=== PATIENT | male | born 1955 | race Caucasian/White ===

== ENCOUNTER 2023-02-08 08:37 | Inpatient (IN) | payer MEDICARE, MEDICAID ==
[2023-02-08] VITALS (46 sets, daily range): BP systolic 43–128; BP diastolic 17–109; PULSE 45–116; RESP 14–34; TEMP 97.2–98.5; O2SAT 90
[~2023-02-08] VITALS: Ht 160 cm; Wt 90.8 kg
[~2023-02-08 08:37] MED LIST: FLUO10CA28 PO; GABA-532 PO; GLIP5TAB12 PO; INSU3INS6 SUBCUT; LOVA40TA73 PO; METF-416 PO; RISA150S2; TAMS-11 MT; farxiga PO
[2023-02-08] MEDS ORDERED: NOREPINEPHRINE 8MG/250ML PMX 250 ML IV ONE ×2 (09:00→11:15)
[2023-02-08] MEDS ORDERED: VANCOMYCIN 1G PREMIX 200 ML IV SCH (09:00)
[2023-02-08] MEDS ORDERED: SODIUM CHLORIDE 0.9% 1000ML BAG (SEPSIS BOLUS) IV ONE (09:00)
[2023-02-08] MEDS ORDERED: PIPERACILLIN/TAZ 3.375G PREMIX 50 ML IV ONE (09:00)
[2023-02-08 09:28] LABS: CHLORIDE 112 mEq/L (98-107); INDEX HEMOLYSI 4 (1-3); INDEX ICTERIC 1 (1-4); INDEX LIPEMIC 1 (1-3); SODIUM 142 mEq/L (136-145)
[2023-02-08 09:40] LABS: ALANINE AMINOTRANSFERASE 61 IU/L (13-61); ALBUMIN 1.6 g/dL (3.4-5.0); ASPARTATE AMINOTRANSFERASE 67 IU/L (15-37); BILIRUBIN TOTAL 1.4 mg/dL (0.1-1.0); CALCIUM 7.4 mg/dL (8.5-10.1); CARBON DIOXIDE 21 mEq/L (21-32); CREATININE 4.1 mg/dL (0.6-1.3); GLUCOSE 55 mg/dL (70-105); LACTATE DEHYDROGENASE 336 IU/L (100-240); NT PRO B-TYPE NATRIURETIC PEP 4789 pg/mL (5-125); PROTEIN TOTAL 5.3 g/dL (6.0-8.3); TROPONIN I HIGH SENSITIVITY 40 ng/L (<78)
[2023-02-08] MEDS ORDERED: PROPOFOL 10MG/ML 100ML 100 ML IV SCH (09:45)
[2023-02-08 09:47] LABS: POTASSIUM 5.7 mEq/L (3.5-5.1)
[2023-02-08 09:48] LABS: UREA NITROGEN BLOOD 121 mg/dL (7-21)
[2023-02-08] MEDS ORDERED: INSULIN REGULAR (HUMULIN R) 300UNITS/3ML VIAL IV STA (09:51)
[2023-02-08 10:00] LABS: BG BASE EXCESS -12.4 mmol/L (-2.0-2.0); BG CARBOXYHEMOGLOBIN 0.2 % (0.5-1.5); BG DEOXYHEMOGLOBIN 3.3 % (0.0-5.0); BG FRACTION INSPIRED OXYGEN 100; BG HCO3 ACT 15.1 mmol/L (22.0-26.0); BG METHEMOGLOBIN 0.2 % (0.0-1.5); BG OXYGEN SATURATION 96.7 % (92.0-98.5); BG OXYHEMOGLOBIN 96.3 % (94.0-97.0); BG PCO2 40.9 mmHg (35.0-45.0); BG PH 7.186 (7.350-7.450); BG PO2 113.3 mmHg (75.0-100.0); BG SAMPLE SITE RIGHT RADIAL; BG TOTAL HEMOGLOBIN 9.9 g/dL (12.0-18.0); BG VENT MODE VENT - AC
[2023-02-08] MEDS ORDERED: PHENYLEPHRINE 50 MG in DEXT 5% WATER 245 ML IV PRN (10:00)
[2023-02-08] MEDS ORDERED: DEXTROSE 50% WATER 50ML SYRINGE IV ONE ×3 (10:00→14:30)
[2023-02-08] MEDS ORDERED: SODIUM BICARBONATE 8.4% 1 MEQ/ML 50ML SYR IV ONE ×3 (10:00→16:05)
[2023-02-08] MEDS ORDERED: CALCIUM CHLORIDE 1GM/10ML SYR IV ONE (10:00)
[2023-02-08 10:13] LABS: HEMATOCRIT. 24.8 % (42.0-52.0); HEMOGLOBIN. 7.5 g/dL (14.0-18.0); MEAN CORPUSCULAR HEMOGLOBIN 27.9 pg (28.0-32.0); MEAN CORPUSCULAR HGB CONC 30.5 g/dL (31.0-37.0); MEAN CORPUSCULAR VOLUME 91.7 fL (80.0-94.0); PLATELET 157 x1000/uL (130-400); RED CELL DISTRIBUTION WIDTH 20.3 % (11.6-14.6)
[2023-02-08 10:18] LABS: DIFFERENTIAL COMMENT 1
[2023-02-08 10:19] LABS: WHITE BLOOD COUNT 1.9 x1000/uL (4.5-11.0)
[2023-02-08 10:31] LABS: INR 1.8; PROTHROMBIN TIME 18.2 sec (9.6-11.0)
[2023-02-08 11:00] LABS: ANISOCYTOSIS 2+; PLATELET ESTIMATE NORMAL
[2023-02-08 11:32] LABS: CLARITY URINE TURBID (CLEAR); COLOR URINE DARK YELLOW (YELLOW); GLUCOSE URINE NEGATIVE (NEGATIVE); KETONES URINE NEGATIVE (NEGATIVE); LEUKOCYTE ESTERASE URINE 3+ (NEGATIVE); NITRITE URINE NEGATIVE (NEGATIVE); OCCULT BLOOD URINE 3+ (NEGATIVE); PROTEIN URINE 1+ (NEGATIVE); SPECIFIC GRAVITY URINE 1.014 (1.005-1.030); UROBILINOGEN URINE 0.2 E.U./dL (0.2-1.0)
[2023-02-08 11:43] LABS: TROPONIN I HIGH SENSITIVITY 63 ng/L (<78)
[2023-02-08 12:06] LABS: SQUAMOUS EPITHELIAL CELL URINE NONE SEEN /lpf (RARE/1+)
[2023-02-08 12:07] LABS: WBC URINE TNTC /hpf (0-2)
[2023-02-08] MEDS ORDERED: LIDOCAINE HCL 1% 10 MG/ML 10ML VIAL ONE ×2 (12:09→12:50)
[2023-02-08 12:13] LABS: RBC URINE 50-100 /hpf (0-2)
[2023-02-08 12:14] LABS: BACTERIA URINE 1+; YEAST URINE 4+
[2023-02-08] MEDS ORDERED: ONDANSETRON HCL 4MG/2ML INJ IV ONE (12:30)
[2023-02-08] MEDS ORDERED: MORPHINE SULFATE 2 MG/ML CPJ (NOT FOR IM USE) IV ONE (12:30)
[2023-02-08] MEDS ORDERED: PHENYLEPHRINE 100 MG in DEXT 5% WATER 240 ML IV PRN (13:45)
[2023-02-08] MEDS ORDERED: VASOPRESSIN 20 UNIT in SODIUM CHLORIDE 0.9% 99 ML IV PRN ×2 (14:45→15:30)
[2023-02-08] MEDS ORDERED: NOREPINEPHRINE 8 MG in DEXT 5% WATER 242 ML IV PRN (14:45)
[2023-02-08] MEDS ORDERED: MIDAZOLAM 100MG/100ML PMX 100 ML IV PRN (14:45)
[2023-02-08] MEDS ORDERED: DEXT 5%/0.45% NACL 1000ML 1,000 ML IV SCH (14:45)
[2023-02-08] MEDS ORDERED: DEXTROSE 50% WATER 50ML SYRINGE IV NR (15:00)
[2023-02-08] MEDS ORDERED: ONDANSETRON HCL 4MG/2ML INJ IV PRN (15:00)
[2023-02-08] MEDS ORDERED: VANCOMYCIN 750MG PREMIX 150 ML IV NR (15:00)
[2023-02-08] MEDS ORDERED: IPRATROPIUM/ALBUTEROL 0.5-3(2.5)MG/3ML NEB HHN PRN (15:00)
[2023-02-08] MEDS ORDERED: MIDAZOLAM HCL 100 MG in SODIUM CHLORIDE 0.9% 100 ML IV PRN (15:00)
[2023-02-08] MEDS ORDERED: NOREPINEPHRINE 8MG/250ML PMX 250 ML IV PRN (15:00)
[2023-02-08] MEDS ORDERED: ACETAMINOPHEN 325MG TABLET PO PRN (15:00)
[2023-02-08] MEDS ORDERED: PANTOPRAZOLE SODIUM 40 MG/VIAL IV SCH (15:15)
[2023-02-08 15:30] LABS: PHOSPHORUS 6.3 mg/dL (2.5-4.9)
[2023-02-08] MEDS ORDERED: ALBUMIN HUMAN 25GM/100ML (25%) IV NR ×2 (15:30→16:00)
[2023-02-08] MEDS ORDERED: SODIUM BICARBONATE 8.4% 1 MEQ/ML 50ML SYR IV NR (15:30)
[2023-02-08] MEDS: VASOPRESSIN 20 UNIT in SODIUM CHLORIDE 0.9% 99 ML IV PRN (16:09)
[2023-02-08] MEDS ORDERED: MEROPENEM 1,000 MG in SODIUM CHLORIDE 0.9% 100 ML IV SCH (16:30)
[2023-02-08] MEDS: NOREPINEPHRINE 32 MG in DEXT 5% WATER 218 ML IV PRN ×2 (17:59→22:34)
[2023-02-08] MEDS: EPINEPHRINE 10 MG in SODIUM CHLORIDE 0.9% 240 ML IV PRN ×2 (18:00→22:34)
[2023-02-08] MEDS ORDERED: AZITHROMYCIN 500 MG in DEXT 5% WATER 250 ML IV SCH (18:00)
[2023-02-08] MEDS: PHENYLEPHRINE 100 MG in DEXT 5% WATER 240 ML IV PRN (19:19)
[2023-02-08] MEDS: MEROPENEM 500MG in NORMAL SALINE 50ML IV SCH (19:20)
[2023-02-08 20:23] LABS: HEMATOCRIT 27.4 % (42.0-52.0)
[2023-02-08 20:31] LABS: INDEX HEMOLYSI 1 (1-3)
[2023-02-08 20:39] LABS: AMMONIA 47 uMol/L (<32)
[2023-02-08] MEDS ORDERED: PIPERACILLIN/TAZ 3.375G PREMIX 50 ML IV NR (21:00)
[2023-02-08] MEDS ORDERED: PIPERACILLIN/TAZOBACTAM 3.375 G in DEXTROSE 5% WATER 50 ML IV SCH (21:00)
[2023-02-08] MEDS ORDERED: MICAFUNGIN 100 MG in SODIUM CHLORIDE 0.9% 100 ML IV SCH (22:00)
[2023-02-09] VITALS (60 sets, daily range): BP systolic 72–130; BP diastolic 21–94; PULSE 50–126; RESP 17–35; TEMP 96.7–98
[2023-02-09] MEDS: VASOPRESSIN 20 UNIT in SODIUM CHLORIDE 0.9% 99 ML IV PRN (00:16)
[2023-02-09] MEDS: PHENYLEPHRINE 100 MG in DEXT 5% WATER 240 ML IV PRN ×3 (00:17→11:02)
[2023-02-09 00:24] LABS: POTASSIUM 5.2 mEq/L (3.5-5.1)
[2023-02-09 00:26] LABS: CALCIUM 7.3 mg/dL (8.5-10.1)
[2023-02-09 00:30] LABS: CREATININE 4.2 mg/dL (0.6-1.3)
[2023-02-09] MEDS ORDERED: DEXTROSE 50% WATER 50ML SYRINGE IV ONE (00:30)
[2023-02-09] MEDS: IPRATROPIUM/ALBUTEROL 0.5-3(2.5)MG/3ML NEB HHN SCH ×3 (00:46→08:19)
[2023-02-09] MEDS: BLOOD SUGAR DIAGNOSTIC STRIP TEST SCH ×4 (00:47→12:00)
[2023-02-09] MEDS: EPINEPHRINE 10 MG in SODIUM CHLORIDE 0.9% 240 ML IV PRN ×4 (02:26→12:22)
[2023-02-09] MEDS ORDERED: SODIUM BICARBONATE 8.4% 1 MEQ/ML 50ML SYR IV NR ×3 (03:00→10:00)
[2023-02-09 04:27] LABS: CHLORIDE 109 mEq/L (98-107); INDEX HEMOLYSI 3 (1-3); INDEX ICTERIC 2 (1-4); INDEX LIPEMIC 1 (1-3); POTASSIUM 5.6 mEq/L (3.5-5.1); SODIUM 142 mEq/L (136-145)
[2023-02-09 04:29] LABS: CALCIUM 6.9 mg/dL (8.5-10.1)
[2023-02-09 04:48] LABS: ALANINE AMINOTRANSFERASE 483 IU/L (13-61); ALBUMIN 1.5 g/dL (3.4-5.0); BILIRUBIN TOTAL 2.5 mg/dL (0.1-1.0); CARBON DIOXIDE 10 mEq/L (21-32); CREATININE 4.3 mg/dL (0.6-1.3); GLUCOSE 66 mg/dL (70-105); PROTEIN TOTAL 4.8 g/dL (6.0-8.3)
[2023-02-09 04:53] LABS: ASPARTATE AMINOTRANSFERASE 2207 IU/L (15-37); LACTIC ACID 17.8 mmol/L (0.4-2.0); UREA NITROGEN BLOOD 122 mg/dL (7-21)
[2023-02-09] MEDS: MEROPENEM 500MG in NORMAL SALINE 50ML IV SCH (05:04)
[2023-02-09] MEDS: DEXTROSE 50% WATER 50ML SYRINGE IV PRN ×2 (05:13→07:57)
[2023-02-09] MEDS: NOREPINEPHRINE 32 MG in DEXT 5% WATER 218 ML IV PRN ×2 (05:19→11:03)
[2023-02-09] MEDS ORDERED: DEXTROSE 50% WATER 50ML SYRINGE IV NR (06:15)
[2023-02-09] MEDS ORDERED: SODIUM POLYSTYRENE SULFONATE 15 G/60 ML BOT PO NR (06:45)
[2023-02-09 08:27] LABS: BASOPHILS % 0.4 % (0.0-2.0); EOSINOPHILS % 7.1 % (0.0-5.0); LYMPHOCYTES % 17.6 % (20.0-50.0); MEAN CORPUSCULAR HEMOGLOBIN 27.6 pg (28.0-32.0); MEAN CORPUSCULAR HGB CONC 27.7 g/dL (31.0-37.0); MEAN CORPUSCULAR VOLUME 99.6 fL (80.0-94.0); MONOCYTES % 6.9 % (2.0-8.0); PLATELET 51 x1000/uL (130-400); RED BLOOD CELL COUNT 2.07 mill/uL (4.7-6.1); RED CELL DISTRIBUTION WIDTH 21.1 % (11.6-14.6)
[2023-02-09 08:29] LABS: DIFFERENTIAL COMMENT 1; HEMATOCRIT. 20.6 % (42.0-52.0); HEMOGLOBIN. 5.7 g/dL (14.0-18.0)
[2023-02-09 08:30] LABS: INDEX HEMOLYSI 4 (1-3); INDEX ICTERIC 2 (1-4); INDEX LIPEMIC 1 (1-3)
[2023-02-09 08:34] LABS: IRON 45 ug/dL (50-175); TOTAL IRON BINDING CAPACITY 99 ug/dL (250-450)
[2023-02-09] MEDS ORDERED: DEXTROSE 10% WATER 500 ML IV ONE (09:00)
[2023-02-09] MEDS ORDERED: PIPERACILLIN/TAZOBACTAM 3.375 G in DEXTROSE 5% WATER 50 ML IV SCH (09:00)
[2023-02-09 09:27] LABS: BG BASE EXCESS -26.9 mmol/L (-2.0-2.0); BG CARBOXYHEMOGLOBIN 0.6 % (0.5-1.5); BG DEOXYHEMOGLOBIN 6.2 % (0.0-5.0); BG FRACTION INSPIRED OXYGEN 100; BG HCO3 ACT 5.4 mmol/L (22.0-26.0); BG METHEMOGLOBIN 0.6 % (0.0-1.5); BG OXYGEN SATURATION 93.7 % (92.0-98.5); BG OXYHEMOGLOBIN 92.6 % (94.0-97.0); BG PCO2 32.4 mmHg (35.0-45.0); BG PH 6.836 (7.350-7.450); BG PO2 92.2 mmHg (75.0-100.0); BG SAMPLE SITE LEFT BRACHIAL; BG VENT MODE VENT - AC
[2023-02-09] MEDS ORDERED: SODIUM BICARBONATE 100 MEQ in DEXTROSE 5% WATER 1,000 ML IV SCH (11:00)
[2023-02-09 11:06] LABS: PROTHROMBIN TIME 42.4 sec (9.6-11.0)
[2023-02-09 11:20] LABS: INR 4.3; PARTIAL THROMBOPLASTIN TIME 139.5 sec (23.4-31.0)
[2023-02-09] MEDS ORDERED: OCTREOTIDE 1,000 MCG in SODIUM CHLORIDE 0.9% 100 ML IV SCH (11:30)
[2023-02-09] MEDS ORDERED: OCTREOTIDE ACETATE 50 MCG/ML 1ML IV NR (12:00)
[2023-02-09] MEDS ORDERED: HYDROCORTISONE SOD SUCCINATE 100 MG/2 ML VIAL IV SCH (14:00)
[2023-02-09] MEDS ORDERED: LACTULOSE 20G/30ML UDC PO SCH (14:00)
[2023-02-09] MEDS ORDERED: DEXT 10% WATER 1,000 ML IV SCH (14:00)
== END 2023-02-09 13:06 | DRG 871 ==
LOC: ER 09:00 → MICUSO 12:25
PROVIDERS: ADMIT Internal Medicine; ATTEND Internal Medicine
PROC: 02HV33Z Insertion of Infusion Device into Superior Vena Cava, Percutaneous Approach (ICD-10-PCS; 2023-02-08)
PROC: B548ZZA Ultrasonography of Superior Vena Cava, Guidance (ICD-10-PCS; 2023-02-08)
PROC: 5A1935Z Respiratory Ventilation, Less than 24 Consecutive Hours (ICD-10-PCS; 2023-02-08)
PROC: 0BH17EZ Insertion of Endotracheal Airway into Trachea, Via Natural or Artificial Opening (ICD-10-PCS; 2023-02-08)
PROC: 5A12012 Performance of Cardiac Output, Single, Manual (ICD-10-PCS; principal; 2023-02-09)
PROC: 30233N1 Transfusion of Nonautologous Red Blood Cells into Peripheral Vein, Percutaneous Approach (ICD-10-PCS; 2023-02-09)
DX: A41.50 Gram-negative sepsis, unspecified (principal); G92.8 Other toxic encephalopathy; R65.21 Severe sepsis with septic shock; J96.21 Acute and chronic respiratory failure with hypoxia; J96.22 Acute and chronic respiratory failure with hypercapnia; E46 Unspecified protein-calorie malnutrition; D68.9 Coagulation defect, unspecified; E87.20 Acidosis, unspecified; N17.9 Acute kidney failure, unspecified; N39.0 Urinary tract infection, site not specified; I46.9 Cardiac arrest, cause unspecified; Z20.822 Contact with and (suspected) exposure to COVID-19; J44.9 Chronic obstructive pulmonary disease, unspecified; D64.89 Other specified anemias; D69.6 Thrombocytopenia, unspecified; E11.649 Type 2 diabetes mellitus with hypoglycemia without coma; E78.5 Hyperlipidemia, unspecified; E87.5 Hyperkalemia; F17.210 Nicotine dependence, cigarettes, uncomplicated; I11.9 Hypertensive heart disease without heart failure; R16.0 Hepatomegaly, not elsewhere classified; K74.60 Unspecified cirrhosis of liver; N40.1 Benign prostatic hyperplasia with lower urinary tract symptoms; Z86.718 Personal history of other venous thrombosis and embolism; Z90.5 Acquired absence of kidney; Z79.899 Other long term (current) drug therapy; Z68.35 Body mass index [BMI] 35.0-35.9, adult
CPT/HCPCS: 36415; 36573; 36600; 71045; 74018; 76700; 80048; 80053; 81003; 82140; 82375; 82728; 82805; 82962; 83010; 83036; 83540; 83550; 83605; 83615; 83735; 83880; 84100; 84145; 84484; 85014; 85018; 85025; 85362; 85379; 85384; 86850; 86900; 86920; 87070; 87077; 87186; 87426; 87804; 92950; 93005; 93970; 94002; 94003; 94640; 99291; A6261; C1725; C9113; C9803; J0456; J2185; J2248; J2270; J2354; J2370; J2543; J2704; J3370; J3490; J7030; J7050; J7060; J7070; P9016; P9047; A4315